=== PATIENT | female | born 1965 | race Caucasian/White ===

== ENCOUNTER 2016-04-14 11:07 | Emergency (ER) | payer OTHER, MEDICARE ==
[~2016-04-14] VITALS: Ht 152.4 cm; Wt 57.6 kg
[~2016-04-14 11:07] MED LIST: BACL10TA PO; BACL20TA PO; GABA-531 PO; NEU100; NORCO5; ROPI0.5T PO; SULF-113; ZOLP5TAB2 PO
[2016-04-14 11:09] VITALS: BP 122/85; PULSE 83; RESP 16; TEMP 98; O2SAT 99
--- NOTE | 2016-04-14 11:28 | NUR ---
Pt placed in room 3 for MD bolaños.
--- NOTE | 2016-04-14 12:14 | NUR ---
per caregiver, pt is having upper and lower extremities tightness for two weeks.pt awake alert,wheelchair bound.
--- NOTE | 2016-04-14 12:16 | NUR ---
ER at bedside examining patient.
[2016-04-14 13:23] LABS: BASOPHILS # (AUTO) 0.1 K/uL (0.0-0.2); BASOPHILS % (AUTO) 1.4 % (0.0-2.0); EOSINOPHILS # (AUTO) 0.1 K/uL (0.0-0.4); EOSINOPHILS % (AUTO) 0.6 % (0.0-4.0); HEMATOCRIT 38.4 % (36-48); HEMOGLOBIN 12.9 g/dL (12.0-16.0); LYMPHOCYTES # (AUTO) 1.5 K/uL (1.0-5.5); LYMPHOCYTES % (AUTO) 17.8 % (20.5-51.5); MEAN CORPUSCULAR HEMOGLOBIN 29 pg (27-31); MEAN CORPUSCULAR HGB CONC 34 % (32-36); MEAN CORPUSCULAR VOLUME 86 fL (79.0-98.0); MONOCYTES # (AUTO) 0.6 K/uL (0.0-1.0); MONOCYTES % (AUTO) 7.1 % (1.7-9.3); NEUTROPHILS # (AUTO) 6.1 K/uL (1.8-7.7); NEUTROPHILS % (AUTO) 73.1 % (40.0-70.0); PLATELET COUNT (AUTO) 316 K/uL (130-430); RED BLOOD CELL COUNT(AUTO) 4.49 MIL/uL (4.2-6.2); RED CELL DISTRIBUTION WIDTH 13.8 % (9.0-15.0); WHITE BLOOD COUNT (AUTO) 8.4 K/uL (4.8-10.8)
[2016-04-14 13:26] LABS: CALCIUM 9.3 mg/dL (8.4-11.0); CREATININE 0.5 mg/dL (0.55-1.30); POTASSIUM 4.4 mmol/L (3.5-5.1)
[2016-04-14 13:30] LABS: ALBUMIN 3.7 g/dL (3.4-4.8); TOTAL BILIRUBIN 0.2 mg/dL (0.0-1.0)
--- NOTE | 2016-04-14 14:06 | NUR ---
resting in wheelchair,no distress,caregiver at bedside.
--- NOTE | 2016-04-14 15:12 | NUR ---
report given to Angelika CAMARGO
--- NOTE | 2016-04-14 15:16 | NUR ---
Endorsed pt from [facility]
--- NOTE | 2016-04-14 16:31 | NUR ---
Patient given written and verbal discharge instructions and verbalizes understanding. ER MD Dr. Warren iscussed with patient the results and treatment provided. Given copies of tests performed in ER. Patient in stable condition. ID arm band. Patient educated on pain management and to follow up with PMD. Pain Scale 0/10. Opportunity for questions provided and answered.
[2016-04-14 16:35] VITALS: BP 122/85; PULSE 83; RESP 16; TEMP 98; O2SAT 99
== END 2016-04-14 16:35 | disposition home or self-care (01) ==
LOC: SED 11:07
DX: G80.9 Cerebral palsy, unspecified (principal)
CPT/HCPCS: 36415; 80053; 81025; 85025; 99284

== ENCOUNTER 2016-05-29 14:12 | Emergency (ER) | payer OTHER, MEDICARE ==
[~2016-05-29] VITALS: Ht 152.4 cm; Wt 59.0 kg
[~2016-05-29 14:12] MED LIST changes: -GABA-531 PO; -NEU100; -NORCO5; -SULF-113; -ZOLP5TAB2 PO
[2016-05-29 14:24] VITALS: BP_SYST 133
--- NOTE | 2016-05-29 14:45 | NUR ---
Patient to ER bed 8 to gown for evaluation. Side rails up.
--- NOTE | 2016-05-29 14:55 | NUR ---
ER at bedside examining patient.
--- NOTE | 2016-05-29 15:00 | NUR ---
Pt sent by PMD for evaluation of UTI. Pt has spasms per report w/ UTI. Pt is nonambulatrory.
--- NOTE | 2016-05-29 15:15 | NUR ---
Urine collected from pt via straight cath by pt.
--- NOTE | 2016-05-29 16:00 | NUR ---
pt medciated prior to d/c.Pt tolerated well.
[2016-05-29 16:10] LABS: BILIRUBIN,URINE NEGATIVE (NEGATIVE); CLARITY/URINE SL CLOUDY (CLEAR); COLOR,URINE YELLOW (YELLOW); GLUCOSE,URINE NEGATIVE (NEGATIVE); KETONES,URINE NEGATIVE (NEGATIVE); LEUKOCYTE ESTERASE ,URINE 1+ (NEGATIVE); NITRITE, URINE POSITIVE (NEGATIVE); PROTEIN URINE NEGATIVE (NEGATIVE); UROBILINOGEN,URINE 0.2 (0.2-1.0)
[2016-05-29 16:11] LABS: BLOOD, URINE TRACE (NEGATIVE)
[2016-05-29 16:21] LABS: BACTERIA,URINE MANY /HPF (None Seen)
[2016-05-29 16:22] LABS: MUCUS,URINE None Seen /LPF (None Seen); URINE AMORPHOUS PHOSPHATES 2+ /HPF (None Seen)
[2016-05-29 16:30] VITALS: BP_SYST 128
[2016-05-29] MEDS ORDERED: NITROFURANTOIN MONOHYD/M-CRYST 100 MG CAPSULE PO ONE (16:30)
--- NOTE | 2016-05-29 16:30 | NUR ---
Patient given written and verbal discharge instructions and verbalizes understanding. ER MD discussed with patient the results and treatment provided. Given copies of tests performed in ER. Patient in stable condition. ID arm band removed. Rx of Macrobid given. Patient educated on pain management and to follow up with PMD. Pain Scale 0. Opportunity for questions provided and answered.
--- NOTE | 2016-05-31 13:45 | NUR ---
Final C & S report reviewed identified organism is suseptible to Macrobid as previously prescribed. No further action indicated.
== END 2016-05-29 16:30 | disposition home or self-care (01) ==
LOC: SED 14:12
DX: N39.0 Urinary tract infection, site not specified (principal); R31.9 Hematuria, unspecified; R03.0 Elevated blood-pressure reading, without diagnosis of hypertension; G80.9 Cerebral palsy, unspecified; Q05.9 Spina bifida, unspecified
CPT/HCPCS: 81000-TC; 87086; 87186-TC; 99284

== ENCOUNTER 2016-06-06 01:20 | Emergency (ER) | payer OTHER, MEDICARE ==
[~2016-06-06] VITALS: Ht 152.4 cm; Wt 59.0 kg
[2016-06-06 01:20] VITALS: BP_SYST 116
[2016-06-06] MEDS ORDERED: SOLI10TA5 PO (01:56)
[2016-06-06] MEDS ORDERED: NITR100C PO (01:57)
[2016-06-06] MEDS ORDERED: CHOL500037 PO (01:58)
[2016-06-06] MEDS ORDERED: [UNRECOGNIZED DRUG - CODE] PO (01:59)
[2016-06-06] MEDS ORDERED: GABA-529 PO (02:03)
[2016-06-06 02:21] LABS: BASOPHILS % (AUTO) 0.7 % (0.0-2.0); EOSINOPHILS % (AUTO) 0.6 % (0.0-4.0); HEMATOCRIT 41.8 % (36-48); HEMOGLOBIN 13.8 g/dL (12.0-16.0); LYMPHOCYTES # (AUTO) 1.6 K/uL (1.0-5.5); LYMPHOCYTES % (AUTO) 27.9 % (20.5-51.5); MEAN CORPUSCULAR HEMOGLOBIN 28 pg (27-31); MEAN CORPUSCULAR HGB CONC 33 % (32-36); MEAN CORPUSCULAR VOLUME 84 fL (79.0-98.0); MONOCYTES # (AUTO) 0.6 K/uL (0.0-1.0); NEUTROPHILS # (AUTO) 3.6 K/uL (1.8-7.7); NEUTROPHILS % (AUTO) 59.8 % (40.0-70.0); PLATELET COUNT (AUTO) 220 K/uL (130-430); RED BLOOD CELL COUNT(AUTO) 4.98 MIL/uL (4.2-6.2); RED CELL DISTRIBUTION WIDTH 13.6 % (9.0-15.0); WHITE BLOOD COUNT (AUTO) 5.8 K/uL (4.8-10.8)
[2016-06-06 02:29] LABS: PROTHROMBIN TIME 11.3 SECS (9.5-12.5)
[2016-06-06 02:33] LABS: ANION GAP 5 (5-15); CALCIUM 8.9 mg/dL (8.4-11.0); CHLORIDE 97 mmol/L (98-107); CREATININE 0.61 mg/dL (0.55-1.30); GFR AFRICAN AMERICAN 134 mL/min (>90); GLUCOSE 116 mg/dL (70-99); POTASSIUM 3.7 mmol/L (3.5-5.1); SODIUM SERUM 129 mmol/L (136-145); UREA NITROGEN, BLOOD 11 mg/dL (8-21)
[2016-06-06 02:57] LABS: ALANINE AMINOTRANSFERASE 23 U/L (12-78); ALBUMIN 3.6 g/dL (3.4-4.8); ASPARTATE AMINOTRANSFERASE 17 U/L (10-37); FREE T4 (FREE THYROXINE) 1.3 ng/dL (0.6-1.6); TOTAL BILIRUBIN 0.4 mg/dL (0.0-1.0); TOTAL PROTEIN, SERUM 7.8 g/dL (6.4-8.3)
[2016-06-06 02:58] LABS: ALCOHOL, BLOOD < 3 mg/dL (<10)
[2016-06-06] MEDS ORDERED: NACL 0.9% 1,000 ML IV ONE (03:15)
[2016-06-06] MEDS ORDERED: LORazepam 2 MG/ML VIAL (FOR ER USE) IVP ONE (03:45)
[2016-06-06 04:03] LABS: BILIRUBIN,URINE NEGATIVE (NEGATIVE); CLARITY/URINE CLEAR (CLEAR); COLOR,URINE YELLOW (YELLOW); GLUCOSE,URINE NEGATIVE (NEGATIVE); KETONES,URINE TRACE (NEGATIVE); LEUKOCYTE ESTERASE ,URINE TRACE (NEGATIVE); NITRITE, URINE NEGATIVE (NEGATIVE); PROTEIN URINE NEGATIVE (NEGATIVE); UROBILINOGEN,URINE 0.2 (0.2-1.0)
[2016-06-06 04:05] LABS: BLOOD, URINE TRACE (NEGATIVE)
[2016-06-06 04:13] LABS: BARBITURATE, URINE NEGATIVE (NEG <=200); BENZODIAZEPINE, URINE NEGATIVE (NEG <=150); CANNABINOID, URINE NEGATIVE (NEG <=50); COCAINE, URINE NEGATIVE (NEG <=150); METHAMPHETAMINES SCREEN,URINE NEGATIVE (NEG <=500); OPIATE, URINE NEGATIVE (NEG <=100); PHENCYCLIDINE SCREEN,URINE NEGATIVE (NEG <=25); UR TRICYCLIC ANTIDEPRESSANTS NEGATIVE (NEG <=300); URINE AMPHETAMINE NEGATIVE (NEG <=500); URINE METHADONE NEGATIVE (NEG <=200); URINE OXYCODONE SCREEN NEGATIVE (NEG <=100); URINE PROPOXYPHENE SCREEN NEGATIVE (NEG <=300)
[2016-06-06 04:18] LABS: BACTERIA,URINE RARE /HPF (None Seen); WBC,URINE 0-3 /HPF (0-3)
[2016-06-06 04:40] VITALS: BP_SYST 112
== END 2016-06-06 04:40 | disposition home or self-care (01) ==
LOC: SED 01:20
DX: R52 Pain, unspecified (principal); G47.00 Insomnia, unspecified; G80.9 Cerebral palsy, unspecified; Q05.9 Spina bifida, unspecified; Z86.79 Personal history of other diseases of the circulatory system
CPT/HCPCS: 36415; 71010; 74000; 80053; 80307; 81000; 82140; 83605; 83880; 84439; 84484; 85025; 85610; 87040; 93005; 96361; 96374; 99285; G0482; J2060; J7030

== ENCOUNTER 2016-08-09 14:29 | Outpatient (CLI) | payer OTHER, MEDICARE ==
[~2016-08-09 14:29] MED LIST changes: -BACL10TA PO; +CHOL500037 PO; +GABA-529 PO; +NITR100C PO; +SOLI10TA5 PO; +[UNRECOGNIZED DRUG - CODE] PO
== END 2016-08-09 18:16 | disposition home or self-care (01) ==
LOC: SRD 14:29
PROVIDERS: ATTEND Anesthesiology Pain Medicine
DX: M47.896 Other spondylosis, lumbar region (principal); M41.86 Other forms of scoliosis, lumbar region; M41.84 Other forms of scoliosis, thoracic region; Q05.6 Thoracic spina bifida without hydrocephalus; Q05.7 Lumbar spina bifida without hydrocephalus
CPT/HCPCS: 72072-TC; 72100-TC

== ENCOUNTER 2022-10-04 13:58 | Inpatient (IN) | payer OTHER, BC ==
[~2022-10-04] VITALS: Ht 162.6 cm; Wt 59.9 kg
[~2022-10-04 13:58] MED LIST changes: +SOLI10TA2 PO; -SOLI10TA5 PO
[2022-10-04 14:04] VITALS: BP_SYST 124; PULSE 88; RESP 18; TEMP 98.3; O2SAT 98
[2022-10-04 14:40] LABS: BASOPHILS % (AUTO) 0.6 % (0.0-2.0); EOSINOPHILS # (AUTO) 0.4 K/uL (0.0-0.4); EOSINOPHILS % (AUTO) 5.2 % (0.0-4.0); HEMOGLOBIN 12.7 g/dL (12.0-16.0); LYMPHOCYTES # (AUTO) 1.3 K/uL (1.0-5.5); LYMPHOCYTES % (AUTO) 18.3 % (20.5-51.5); MEAN CORPUSCULAR HEMOGLOBIN 27 pg (27-31); MEAN CORPUSCULAR HGB CONC 32 % (32-36); MEAN CORPUSCULAR VOLUME 84 fL (79.0-98.0); MONOCYTES # (AUTO) 0.6 K/uL (0.0-1.0); MONOCYTES % (AUTO) 8.2 % (1.7-9.3); NEUTROPHILS # (AUTO) 4.6 K/uL (1.8-7.7); NEUTROPHILS % (AUTO) 67.7 % (40.0-70.0); PLATELET COUNT (AUTO) 343 K/uL (130-430); RED BLOOD CELL COUNT(AUTO) 4.77 MIL/uL (4.2-6.2); RED CELL DISTRIBUTION WIDTH 16.9 % (9.0-15.0); WHITE BLOOD COUNT (AUTO) 6.9 K/uL (4.8-10.8)
[2022-10-04 15:00] LABS: PROTHROMBIN TIME 10.7 SECS (9.5-12.5)
[2022-10-04 15:08] LABS: POTASSIUM 3.9 mmol/L (3.5-5.1)
[2022-10-04 15:09] LABS: ALBUMIN 2.9 g/dL (3.4-4.8); CALCIUM 8.5 mg/dL (8.4-11.0); CREATININE 0.39 mg/dL (0.55-1.30); TOTAL BILIRUBIN 0.2 mg/dL (0.0-1.0); TOTAL PROTEIN, SERUM 6.8 g/dL (6.4-8.3)
[2022-10-04 17:47] LABS: BILIRUBIN,URINE NEGATIVE (NEGATIVE); BLOOD, URINE 3+ (NEGATIVE); CLARITY/URINE SL CLOUDY (CLEAR); COLOR,URINE YELLOW (YELLOW); GLUCOSE,URINE NEGATIVE (NEGATIVE); KETONES,URINE NEGATIVE (NEGATIVE); LEUKOCYTE ESTERASE ,URINE TRACE (NEGATIVE); NITRITE, URINE POSITIVE (NEGATIVE); PROTEIN URINE NEGATIVE (NEGATIVE); UROBILINOGEN,URINE 0.2 (0.2-1.0)
[2022-10-04 18:00] LABS: BACTERIA,URINE MODERATE /HPF (None Seen); RBC,URINE 20-50 /HPF (0-3)
[2022-10-04] MEDS ORDERED: VANCOMYCIN HCL 1,250 MG in NS 250 ML IV ONE (18:00)
[2022-10-04 18:01] LABS: MUCUS,URINE None Seen /LPF (None Seen); URINE AMORPHOUS PHOSPHATES 2+ /HPF (None Seen)
[2022-10-04] MEDS ORDERED: CYCL10TA24 PO (19:13)
[2022-10-04] MEDS ORDERED: NITROFURANTOIN PO (19:13)
[2022-10-04] MEDS ORDERED: TIZA6CAP PO (19:13)
[2022-10-04] MEDS ORDERED: POLY17PO4 PO (19:13)
[2022-10-04] MEDS ORDERED: APIX5TAB PO (19:13)
[2022-10-04] MEDS ORDERED: BACL20TA PO (19:13)
[2022-10-04 20:20] VITALS: BP_SYST 133; PULSE 96; RESP 20; TEMP 97.2
[2022-10-04] MEDS: CEFEPIME 2 GM in D5W 100 ML IV SCH (21:57)
[2022-10-05] VITALS (7 sets, daily range): BP systolic 104–129; PULSE 89–98; RESP 15–18; TEMP 96.9–97.9; O2SAT 92–97
[2022-10-05] MEDS: CEFEPIME 2 GM in D5W 100 ML IV SCH ×2 (09:28→23:29)
[2022-10-05 10:51] LABS: BASOPHILS % (AUTO) 0.4 % (0.0-2.0); EOSINOPHILS # (AUTO) 0.2 K/uL (0.0-0.4); EOSINOPHILS % (AUTO) 2.3 % (0.0-4.0); HEMATOCRIT 35.5 % (36-48); HEMOGLOBIN 11.6 g/dL (12.0-16.0); LYMPHOCYTES # (AUTO) 1.4 K/uL (1.0-5.5); MEAN CORPUSCULAR HEMOGLOBIN 27 pg (27-31); MEAN CORPUSCULAR HGB CONC 33 % (32-36); MONOCYTES # (AUTO) 0.6 K/uL (0.0-1.0); MONOCYTES % (AUTO) 8.4 % (1.7-9.3); NEUTROPHILS # (AUTO) 5.3 K/uL (1.8-7.7); NEUTROPHILS % (AUTO) 70.9 % (40.0-70.0); PLATELET COUNT (AUTO) 339 K/uL (130-430); RED BLOOD CELL COUNT(AUTO) 4.34 MIL/uL (4.2-6.2); RED CELL DISTRIBUTION WIDTH 16.6 % (9.0-15.0); WHITE BLOOD COUNT (AUTO) 7.5 K/uL (4.8-10.8)
[2022-10-05 10:53] LABS: MEAN CORPUSCULAR VOLUME 82 fL (79.0-98.0)
[2022-10-05 11:27] LABS: CREATININE 0.55 mg/dL (0.55-1.30); TOTAL BILIRUBIN 0.3 mg/dL (0.0-1.0); TOTAL PROTEIN, SERUM 6.3 g/dL (6.4-8.3)
[2022-10-05 11:53] LABS: ALBUMIN 2.7 g/dL (3.4-4.8)
[2022-10-05] MEDS: VANCOMYCIN HCL 750 MG in NS 250 ML IV SCH (13:39)
[2022-10-05] MEDS ORDERED: ONDANSETRON HCL 4 MG/2 ML VIAL IVP PRN (19:15)
[2022-10-05] MEDS ORDERED: CYCLOBENZAPRINE HCL 10 MG TABLET (FLEXERIL) PO PRN (19:15)
[2022-10-05] MEDS ORDERED: NALOXONE HCL 0.4 MG/ML AMP (NARCAN) IVP PRN ×2 (19:15)
[2022-10-05] MEDS ORDERED: LORazepam 2 MG/ML VIAL IVP PRN (19:15)
[2022-10-05] MEDS ORDERED: HYDROcodone/ACETAMIN 5-325 MG TAB (NORCO/ VICODIN) PO PRN (19:15)
[2022-10-05] MEDS ORDERED: ACETAMINOPHEN 325 MG TABLET PO PRN (19:15)
[2022-10-05] MEDS ORDERED: HYDROcodone/ACETAMIN 10-325 MG TAB PO PRN (19:15)
[2022-10-05] MEDS ORDERED: DIPHENHYDRAMINE HCL 25 MG CAPSULE PO PRN (20:15)
[2022-10-05] MEDS ORDERED: BACLOFEN 10 MG TABLET PO SCH (21:00)
[2022-10-05] MEDS: tiZANidine HCL 4 MG TABLET PO SCH (23:03)
[2022-10-05] MEDS: oxyBUTYnin chloride 5 MG TABLET PO SCH (23:03)
[2022-10-05] MEDS: GABAPENTIN 100 MG CAPSULE PO SCH (23:04)
[2022-10-05] MEDS: NORMAL SALINE 5 ML DISP.SYRIN IVF SCH (23:05)
[2022-10-05] MEDS: APIXABAN 2.5 MG TABLET PO SCH (23:05)
[2022-10-06 00:37] VITALS: BP_SYST 124; PULSE 77; RESP 16; TEMP 96.8; O2SAT 92
[2022-10-06] MEDS: VANCOMYCIN HCL 750 MG in NS 250 ML IV SCH ×2 (01:54→13:54)
[2022-10-06] MEDS: NORMAL SALINE 5 ML DISP.SYRIN IVF SCH ×3 (05:43→22:22)
[2022-10-06 07:56] LABS: ALBUMIN 2.6 g/dL (3.4-4.8); CALCIUM 7.9 mg/dL (8.4-11.0); CREATININE 0.39 mg/dL (0.55-1.30); POTASSIUM 3.6 mmol/L (3.5-5.1); TOTAL BILIRUBIN 0.2 mg/dL (0.0-1.0)
[2022-10-06 08:07] LABS: BASOPHILS % (AUTO) 0.5 % (0.0-2.0); EOSINOPHILS # (AUTO) 0.3 K/uL (0.0-0.4); EOSINOPHILS % (AUTO) 3.3 % (0.0-4.0); HEMOGLOBIN 11.5 g/dL (12.0-16.0); LYMPHOCYTES # (AUTO) 2.3 K/uL (1.0-5.5); LYMPHOCYTES % (AUTO) 29.4 % (20.5-51.5); MEAN CORPUSCULAR HEMOGLOBIN 27 pg (27-31); MEAN CORPUSCULAR HGB CONC 33 % (32-36); MEAN CORPUSCULAR VOLUME 83 fL (79.0-98.0); MONOCYTES # (AUTO) 0.5 K/uL (0.0-1.0); NEUTROPHILS # (AUTO) 4.6 K/uL (1.8-7.7); NEUTROPHILS % (AUTO) 59.8 % (40.0-70.0); PLATELET COUNT (AUTO) 324 K/uL (130-430); RED BLOOD CELL COUNT(AUTO) 4.23 MIL/uL (4.2-6.2); RED CELL DISTRIBUTION WIDTH 16.2 % (9.0-15.0); WHITE BLOOD COUNT (AUTO) 7.8 K/uL (4.8-10.8)
[2022-10-06] MEDS ORDERED: NON-FORMULARY MEDICATION (Solifenacin Succinate (Vesicare) 10 MG) PO SCH (09:00)
[2022-10-06] MEDS: CEFEPIME 2 GM in D5W 100 ML IV SCH ×2 (10:03→22:21)
[2022-10-06] MEDS: POLYETHYLENE GLYCOL 3350, 17 GM/ POWD.PACK PO SCH (10:11)
[2022-10-06] MEDS: GABAPENTIN 100 MG CAPSULE PO SCH ×4 (10:11→22:20)
[2022-10-06] MEDS: oxyBUTYnin chloride 5 MG TABLET PO SCH ×2 (10:11→22:21)
[2022-10-06] MEDS: APIXABAN 2.5 MG TABLET PO SCH ×2 (10:21→22:21)
[2022-10-06] MEDS: BALSAM PERU/CASTOR OIL 56.7 GM OINT...G. TP SCH (10:26)
[2022-10-06 11:30] VITALS: BP_SYST 124; PULSE 88; RESP 19; TEMP 98.1; O2SAT 94
[2022-10-06 13:25] VITALS: O2SAT 96
[2022-10-06 16:30] VITALS: BP_SYST 118; PULSE 88; RESP 19; TEMP 98.4; O2SAT 96
[2022-10-06 22:00] VITALS: O2SAT 97
[2022-10-06] MEDS: BACLOFEN 10 MG TABLET PO SCH (22:21)
[2022-10-06] MEDS: tiZANidine HCL 4 MG TABLET PO SCH (22:21)
[2022-10-07] VITALS (7 sets, daily range): BP systolic 91–133; PULSE 74–82; RESP 16–18; TEMP 96.6–98; O2SAT 95–98
[2022-10-07] MEDS: VANCOMYCIN HCL 750 MG in NS 250 ML IV SCH ×2 (01:53→14:54)
[2022-10-07] MEDS: NORMAL SALINE 5 ML DISP.SYRIN IVF SCH ×3 (05:53→21:14)
[2022-10-07 06:19] LABS: BASOPHILS # (AUTO) 0.1 K/uL (0.0-0.2); BASOPHILS % (AUTO) 0.6 % (0.0-2.0); EOSINOPHILS # (AUTO) 0.3 K/uL (0.0-0.4); EOSINOPHILS % (AUTO) 3.8 % (0.0-4.0); HEMATOCRIT 34.8 % (36-48); HEMOGLOBIN 11.2 g/dL (12.0-16.0); LYMPHOCYTES # (AUTO) 2.6 K/uL (1.0-5.5); LYMPHOCYTES % (AUTO) 32.7 % (20.5-51.5); MEAN CORPUSCULAR HEMOGLOBIN 27 pg (27-31); MEAN CORPUSCULAR HGB CONC 32 % (32-36); MEAN CORPUSCULAR VOLUME 83 fL (79.0-98.0); MONOCYTES # (AUTO) 0.6 K/uL (0.0-1.0); MONOCYTES % (AUTO) 7.6 % (1.7-9.3); NEUTROPHILS # (AUTO) 4.4 K/uL (1.8-7.7); NEUTROPHILS % (AUTO) 55.3 % (40.0-70.0); PLATELET COUNT (AUTO) 341 K/uL (130-430); RED CELL DISTRIBUTION WIDTH 16.8 % (9.0-15.0)
[2022-10-07 06:24] LABS: CALCIUM 7.7 mg/dL (8.4-11.0); CREATININE 0.4 mg/dL (0.55-1.30); POTASSIUM 3.8 mmol/L (3.5-5.1)
[2022-10-07 06:35] LABS: ERYTHROCYTE SEDIMENTATION RATE 36 MM/HR (0-20)
[2022-10-07] MEDS: POLYETHYLENE GLYCOL 3350, 17 GM/ POWD.PACK PO SCH (09:04)
[2022-10-07] MEDS: GABAPENTIN 100 MG CAPSULE PO SCH ×4 (09:04→21:04)
[2022-10-07] MEDS: oxyBUTYnin chloride 5 MG TABLET PO SCH ×2 (09:04→21:04)
[2022-10-07] MEDS: APIXABAN 2.5 MG TABLET PO SCH ×2 (09:18→21:05)
[2022-10-07] MEDS: BALSAM PERU/CASTOR OIL 56.7 GM OINT...G. TP SCH (09:19)
[2022-10-07] MEDS: CEFEPIME 2 GM in D5W 100 ML IV SCH ×2 (10:48→23:39)
[2022-10-07] MEDS: tiZANidine HCL 4 MG TABLET PO SCH (21:04)
[2022-10-07] MEDS: BACLOFEN 10 MG TABLET PO SCH (23:32)
[2022-10-07] MEDS ORDERED: CEFEPIME 2 GM/VIAL (MAXIPIME) ONE (23:37)
[2022-10-08 01:00] VITALS: BP_SYST 133; PULSE 82; RESP 16; TEMP 97.4; O2SAT 98
[2022-10-08] MEDS: VANCOMYCIN HCL 750 MG in NS 250 ML IV SCH (01:19)
[2022-10-08 02:54] VITALS: BP_SYST 96; PULSE 86; RESP 18; TEMP 97; O2SAT 96
[2022-10-08 08:00] VITALS: BP_SYST 103; PULSE 85; RESP 18; TEMP 97.1; O2SAT 95
[2022-10-08] MEDS: APIXABAN 2.5 MG TABLET PO SCH ×2 (09:00→21:13)
[2022-10-08] MEDS: BALSAM PERU/CASTOR OIL 56.7 GM OINT...G. TP SCH (09:00)
[2022-10-08] MEDS: GABAPENTIN 100 MG CAPSULE PO SCH ×3 (11:06→21:14)
[2022-10-08] MEDS: oxyBUTYnin chloride 5 MG TABLET PO SCH ×2 (11:07→21:13)
[2022-10-08] MEDS: POLYETHYLENE GLYCOL 3350, 17 GM/ POWD.PACK PO SCH (11:07)
[2022-10-08] MEDS: CEFEPIME 2 GM in D5W 100 ML IV SCH ×2 (11:11→21:15)
[2022-10-08 15:46] VITALS: BP_SYST 132; PULSE 88; RESP 18; TEMP 97.1; O2SAT 98
[2022-10-08 15:58] VITALS: O2SAT 98
[2022-10-10] MEDS ORDERED: ERGOCALCIFEROL 8000 UNITS/ML ORAL SOLUTION, 60 ML BOTTLE PO SCH (09:00)
== END 2022-10-08 22:43 | DRG 571 ==
LOC: SED 13:58 → SMU 17:04
PROVIDERS: ADMIT Preventive Medicine Preventive Medicine/Occupational Environmental Medicine; ATTEND Preventive Medicine Preventive Medicine/Occupational Environmental Medicine
PROC: 0JBL0ZZ Excision of Right Upper Leg Subcutaneous Tissue and Fascia, Open Approach (ICD-10-PCS; principal; 2022-10-05)
DX: L89.890 Pressure ulcer of other site, unstageable (principal); E44.0 Moderate protein-calorie malnutrition; L02.31 Cutaneous abscess of buttock; E87.1 Hypo-osmolality and hyponatremia; N39.0 Urinary tract infection, site not specified; Z16.24 Resistance to multiple antibiotics; I96 Gangrene, not elsewhere classified; G80.9 Cerebral palsy, unspecified; I25.10 Atherosclerotic heart disease of native coronary artery without angina pectoris; E88.09 Other disorders of plasma-protein metabolism, not elsewhere classified; N31.9 Neuromuscular dysfunction of bladder, unspecified; B96.20 Unspecified Escherichia coli [E. coli] as the cause of diseases classified elsewhere; L98.429 Non-pressure chronic ulcer of back with unspecified severity; D64.9 Anemia, unspecified; G62.9 Polyneuropathy, unspecified; R73.9 Hyperglycemia, unspecified; E83.52 Hypercalcemia; Z68.22 Body mass index [BMI] 22.0-22.9, adult; Q05.9 Spina bifida, unspecified; Z99.3 Dependence on wheelchair; Z87.440 Personal history of urinary (tract) infections; Z74.01 Bed confinement status
CPT/HCPCS: 36415; 80048; 80053; 80202; 81000; 83605; 85025; 85610-TC; 85651-TC; 85730-TC; 87040; 87070-TC; 87081; 87086; 96365; 97110-GP; 97163-GP; 99285; C1751; J0692; J3370; J7050; J7060

== ENCOUNTER 2023-01-18 00:28 | Emergency (ER) | payer OTHER, BC ==
[~2023-01-18] VITALS: Ht 162.6 cm; Wt 77.1 kg
[~2023-01-18 00:28] MED LIST changes: +APIX5TAB PO; +CYCL10TA24 PO; +NITROFURANTOIN PO; +POLY17PO4 PO; +TIZA6CAP PO
[2023-01-18 00:53] VITALS: BP_SYST 123; PULSE 102; RESP 18; TEMP 98.4; O2SAT 98
[2023-01-18 01:45] LABS: BASOPHILS % (AUTO) 0.4 % (0.0-2.0); EOSINOPHILS # (AUTO) 0.3 K/uL (0.0-0.4); EOSINOPHILS % (AUTO) 3.4 % (0.0-4.0); HEMATOCRIT 35.2 % (36-48); HEMOGLOBIN 11.4 g/dL (12.0-16.0); LYMPHOCYTES # (AUTO) 2.2 K/uL (1.0-5.5); LYMPHOCYTES % (AUTO) 24.3 % (20.5-51.5); MEAN CORPUSCULAR HEMOGLOBIN 27 pg (27-31); MEAN CORPUSCULAR HGB CONC 32 % (32-36); MEAN CORPUSCULAR VOLUME 83 fL (79.0-98.0); MONOCYTES # (AUTO) 0.6 K/uL (0.0-1.0); MONOCYTES % (AUTO) 6.2 % (1.7-9.3); NEUTROPHILS % (AUTO) 65.7 % (40.0-70.0); PLATELET COUNT (AUTO) 424 K/uL (130-430); RED BLOOD CELL COUNT(AUTO) 4.25 MIL/uL (4.2-6.2); RED CELL DISTRIBUTION WIDTH 16.5 % (9.0-15.0); WHITE BLOOD COUNT (AUTO) 9.2 K/uL (4.8-10.8)
[2023-01-18] MEDS ORDERED: MOM PO (01:46)
[2023-01-18 01:53] LABS: BILIRUBIN,URINE NEGATIVE (NEGATIVE); BLOOD, URINE 3+ (NEGATIVE); COLOR,URINE YELLOW (YELLOW); GLUCOSE,URINE NEGATIVE (NEGATIVE); KETONES,URINE NEGATIVE (NEGATIVE); LEUKOCYTE ESTERASE ,URINE 3+ (NEGATIVE); NITRITE, URINE POSITIVE (NEGATIVE); PROTEIN URINE 1+ (NEGATIVE); UROBILINOGEN,URINE 0.2 (0.2-1.0)
[2023-01-18 01:58] LABS: ALBUMIN 2.8 g/dL (3.4-4.8); CALCIUM 8.9 mg/dL (8.4-11.0); CREATININE 0.56 mg/dL (0.55-1.30); POTASSIUM 3.8 mmol/L (3.5-5.1); TOTAL BILIRUBIN 0.2 mg/dL (0.0-1.0); TOTAL PROTEIN, SERUM 7.1 g/dL (6.4-8.3)
[2023-01-18 02:06] LABS: CLARITY/URINE CLOUDY (CLEAR)
[2023-01-18 02:08] LABS: BACTERIA,URINE MANY /HPF (None Seen); RBC,URINE 80-100 /HPF (0-3); WBC,URINE >100 /HPF (0-3)
[2023-01-18 04:37] VITALS: BP_SYST 123; PULSE 102; RESP 18; TEMP 98.4; O2SAT 98
== END 2023-01-18 04:37 ==
LOC: SED 00:28
DX: K59.00 Constipation, unspecified (principal); R10.84 Generalized abdominal pain; Z79.899 Other long term (current) drug therapy
CPT/HCPCS: 36415; 74018; 80053; 81000; 81001; 81015; 83605; 85025; 87040; 87086; 99284

== ENCOUNTER 2023-02-19 08:36 | Inpatient (IN) | payer OTHER, BC ==
[~2023-02-19] VITALS: Ht 162.6 cm; Wt 60.3 kg
[~2023-02-19 08:36] MED LIST changes: +MOM PO
[2023-02-19 08:40] VITALS: BP_SYST 112; PULSE 111; RESP 18; O2SAT 94
[2023-02-19 09:17] LABS: CALCIUM 8.8 mg/dL (8.4-11.0); CREATININE 0.49 mg/dL (0.55-1.30); POTASSIUM 3.7 mmol/L (3.5-5.1)
[2023-02-19 09:23] LABS: BASOPHILS % (AUTO) 0.2 % (0.0-2.0); HEMATOCRIT 37.6 % (36-48); HEMOGLOBIN 12.6 g/dL (12.0-16.0); LYMPHOCYTES # (AUTO) 0.9 K/uL (1.0-5.5); LYMPHOCYTES % (AUTO) 8.6 % (20.5-51.5); MEAN CORPUSCULAR HEMOGLOBIN 27 pg (27-31); MEAN CORPUSCULAR HGB CONC 33 % (32-36); MEAN CORPUSCULAR VOLUME 81 fL (79.0-98.0); MONOCYTES # (AUTO) 0.3 K/uL (0.0-1.0); MONOCYTES % (AUTO) 3.3 % (1.7-9.3); NEUTROPHILS # (AUTO) 8.9 K/uL (1.8-7.7); NEUTROPHILS % (AUTO) 87.9 % (40.0-70.0); PLATELET COUNT (AUTO) 378 K/uL (130-430); RED BLOOD CELL COUNT(AUTO) 4.66 MIL/uL (4.2-6.2); RED CELL DISTRIBUTION WIDTH 16.2 % (9.0-15.0); WHITE BLOOD COUNT (AUTO) 10.1 K/uL (4.8-10.8)
[2023-02-19] MEDS ORDERED: NS 500 ML IV ONE (10:00)
[2023-02-19] MEDS ORDERED: NACL 0.9% 1,000 ML IV ONE (11:45)
[2023-02-19] MEDS ORDERED: AZITHROMYCIN 500 MG in NS 250 ML IV ONE (13:45)
[2023-02-19] MEDS ORDERED: cefTRIAXone 1 GM IVPB PREMIX 50 ML IV ONE (13:45)
[2023-02-19 14:07] LABS: BILIRUBIN,URINE NEGATIVE (NEGATIVE); BLOOD, URINE 3+ (NEGATIVE); CLARITY/URINE SL CLOUDY (CLEAR); COLOR,URINE YELLOW (YELLOW); GLUCOSE,URINE NEGATIVE (NEGATIVE); KETONES,URINE NEGATIVE (NEGATIVE); NITRITE, URINE POSITIVE (NEGATIVE); PH,URINE 7.5 (5.0-8.0); PROTEIN URINE 1+ (NEGATIVE); UROBILINOGEN,URINE 0.2 (0.2-1.0)
[2023-02-19 14:12] LABS: LEUKOCYTE ESTERASE ,URINE 2+ (NEGATIVE)
[2023-02-19 14:13] LABS: BACTERIA,URINE FEW /HPF (None Seen); MUCUS,URINE None Seen /LPF (None Seen)
[2023-02-19] MEDS ORDERED: AZITHROMYCIN 500 MG in NS 250 ML IV SCH (14:15)
[2023-02-19 14:16] LABS: URINE AMORPHOUS PHOSPHATES 2+ /HPF (None Seen)
[2023-02-19 14:25] VITALS: PULSE 100; O2SAT 95
[2023-02-19] MEDS ORDERED: AZITHROMYCIN 500 MG/VIAL (ZITHROMAX) IV ONE (14:36)
[2023-02-19] MEDS: D5/0.45 NS 1,000 ML IV SCH (16:00)
[2023-02-19] MEDS ORDERED: IPRATROPIUM/ALBUTEROL SULFATE 3 ML AMPUL.NEB (DUONEB) INH SCH (17:00)
[2023-02-19] MEDS: PIPERACILLIN/TAZO 3.375/DEX-IS 50 ML IV SCH (18:16)
[2023-02-19] MEDS: IPRATROPIUM/ALBUTEROL SULFATE 3 ML AMPUL.NEB (DUONEB) INH SCH (19:00)
[2023-02-19] MEDS ORDERED: BACLOFEN 10 MG TABLET PO SCH (21:00)
[2023-02-19] MEDS ORDERED: roPINIRole HCL 0.25 MG ( REQUIP )TABLET PO SCH (21:00)
[2023-02-19] MEDS ORDERED: IPRATROPIUM/ALBUTEROL SULFATE 3 ML AMPUL.NEB (DUONEB) INH PRN (22:00)
[2023-02-19 23:27] VITALS: O2SAT 96
[2023-02-20] MEDS ORDERED: PIPERACILLIN/TAZOBACTAM 3.375 GM/VIAL (ZOSYN) IV ONE (00:01)
[2023-02-20] MEDS: PIPERACILLIN/TAZO 3.375/DEX-IS 50 ML IV SCH ×4 (00:19→18:00)
[2023-02-20] MEDS: D5/0.45 NS 1,000 ML IV SCH ×3 (00:34→22:38)
[2023-02-20 06:57] LABS: ALBUMIN 2.6 g/dL (3.4-4.8); CALCIUM 8.1 mg/dL (8.4-11.0); CREATININE 0.54 mg/dL (0.55-1.30); POTASSIUM 3.6 mmol/L (3.5-5.1); TOTAL BILIRUBIN 0.2 mg/dL (0.0-1.0); TOTAL PROTEIN, SERUM 6.6 g/dL (6.4-8.3)
[2023-02-20 07:00] LABS: BASOPHILS % (AUTO) 0.2 % (0.0-2.0); EOSINOPHILS % (AUTO) 0.1 % (0.0-4.0); HEMATOCRIT 35.7 % (36-48); HEMOGLOBIN 11.6 g/dL (12.0-16.0); LYMPHOCYTES # (AUTO) 1.7 K/uL (1.0-5.5); LYMPHOCYTES % (AUTO) 21.5 % (20.5-51.5); MEAN CORPUSCULAR HEMOGLOBIN 26 pg (27-31); MEAN CORPUSCULAR HGB CONC 32 % (32-36); MEAN CORPUSCULAR VOLUME 82 fL (79.0-98.0); MONOCYTES # (AUTO) 0.6 K/uL (0.0-1.0); MONOCYTES % (AUTO) 7.3 % (1.7-9.3); NEUTROPHILS # (AUTO) 5.6 K/uL (1.8-7.7); NEUTROPHILS % (AUTO) 70.9 % (40.0-70.0); PLATELET COUNT (AUTO) 323 K/uL (130-430); RED BLOOD CELL COUNT(AUTO) 4.37 MIL/uL (4.2-6.2); RED CELL DISTRIBUTION WIDTH 16.7 % (9.0-15.0); WHITE BLOOD COUNT (AUTO) 7.9 K/uL (4.8-10.8)
[2023-02-20 07:40] VITALS: O2SAT 94
[2023-02-20] MEDS: IPRATROPIUM/ALBUTEROL SULFATE 3 ML AMPUL.NEB (DUONEB) INH SCH ×4 (08:39→22:01)
[2023-02-20] MEDS ORDERED: NON-FORMULARY MEDICATION (Solifenacin Succinate (Vesicare) 10 MG) PO SCH (09:00)
[2023-02-20] MEDS: MILK OF MAGNESIA 30 ML UDC PO SCH ×3 (09:00→21:41)
[2023-02-20] MEDS: GABAPENTIN 100 MG CAPSULE PO SCH ×5 (09:00→21:41)
[2023-02-20] MEDS: POLYETHYLENE GLYCOL 3350, 17 GM/ POWD.PACK PO SCH (09:00)
[2023-02-20] MEDS: AZITHROMYCIN 500 MG in NS 250 ML IV SCH (10:54)
[2023-02-20 12:55] VITALS: O2SAT 96
[2023-02-20] MEDS: APIXABAN 2.5 MG TABLET PO SCH ×2 (17:42→21:40)
[2023-02-20 22:01] VITALS: O2SAT 97
[2023-02-20 22:16] VITALS: BP_SYST 100; PULSE 75; RESP 17; TEMP 98.4
[2023-02-21] VITALS (10 sets, daily range): BP systolic 91–110; PULSE 96–102; RESP 16; TEMP 97.2–99.2; O2SAT 95–99
[2023-02-21] MEDS: PIPERACILLIN/TAZO 3.375/DEX-IS 50 ML IV SCH ×5 (00:23→23:55)
[2023-02-21 04:45] LABS: CALCIUM 8.1 mg/dL (8.4-11.0); CREATININE 0.48 mg/dL (0.55-1.30); POTASSIUM 3.4 mmol/L (3.5-5.1)
[2023-02-21 05:19] LABS: BASOPHILS % (AUTO) 0.3 % (0.0-2.0); EOSINOPHILS # (AUTO) 0.1 K/uL (0.0-0.4); EOSINOPHILS % (AUTO) 1.1 % (0.0-4.0); HEMATOCRIT 31.7 % (36-48); HEMOGLOBIN 10.2 g/dL (12.0-16.0); LYMPHOCYTES # (AUTO) 2.4 K/uL (1.0-5.5); LYMPHOCYTES % (AUTO) 34.1 % (20.5-51.5); MEAN CORPUSCULAR HEMOGLOBIN 26 pg (27-31); MEAN CORPUSCULAR HGB CONC 32 % (32-36); MEAN CORPUSCULAR VOLUME 81 fL (79.0-98.0); MONOCYTES # (AUTO) 0.7 K/uL (0.0-1.0); MONOCYTES % (AUTO) 9.8 % (1.7-9.3); NEUTROPHILS # (AUTO) 3.9 K/uL (1.8-7.7); NEUTROPHILS % (AUTO) 54.7 % (40.0-70.0); PLATELET COUNT (AUTO) 285 K/uL (130-430); RED BLOOD CELL COUNT(AUTO) 3.93 MIL/uL (4.2-6.2); RED CELL DISTRIBUTION WIDTH 16.6 % (9.0-15.0); WHITE BLOOD COUNT (AUTO) 7.2 K/uL (4.8-10.8)
[2023-02-21] MEDS: IPRATROPIUM/ALBUTEROL SULFATE 3 ML AMPUL.NEB (DUONEB) INH SCH ×4 (07:35→19:50)
[2023-02-21] MEDS ORDERED: BACLOFEN 10 MG TABLET PO SCH (09:00)
[2023-02-21] MEDS: AZITHROMYCIN 500 MG in NS 250 ML IV SCH (09:45)
[2023-02-21] MEDS: D5/0.45 NS 1,000 ML IV SCH (09:49)
[2023-02-21] MEDS: MILK OF MAGNESIA 30 ML UDC PO SCH ×2 (09:53→21:34)
[2023-02-21] MEDS: oxyBUTYnin chloride 5 MG TABLET PO SCH ×3 (09:53→21:32)
[2023-02-21] MEDS: GABAPENTIN 100 MG CAPSULE PO SCH ×4 (09:53→21:32)
[2023-02-21] MEDS: POLYETHYLENE GLYCOL 3350, 17 GM/ POWD.PACK PO SCH (09:53)
[2023-02-21] MEDS: APIXABAN 2.5 MG TABLET PO SCH ×2 (09:54→21:31)
[2023-02-21] MEDS ORDERED: POTASSIUM CHLORIDE 20 MEQ TABLET.ER PO ONE (11:30)
[2023-02-21] MEDS: BACLOFEN 10 MG TABLET PO SCH (21:30)
[2023-02-22] VITALS (9 sets, daily range): BP systolic 94–127; PULSE 69–100; RESP 18; TEMP 96.8–99.1; O2SAT 93–99
[2023-02-22 04:09] LABS: BASOPHILS % (AUTO) 0.2 % (0.0-2.0); EOSINOPHILS # (AUTO) 0.3 K/uL (0.0-0.4); EOSINOPHILS % (AUTO) 3.1 % (0.0-4.0); HEMATOCRIT 31.6 % (36-48); HEMOGLOBIN 10.6 g/dL (12.0-16.0); LYMPHOCYTES # (AUTO) 2.3 K/uL (1.0-5.5); LYMPHOCYTES % (AUTO) 27.1 % (20.5-51.5); MEAN CORPUSCULAR HEMOGLOBIN 27 pg (27-31); MEAN CORPUSCULAR HGB CONC 34 % (32-36); MEAN CORPUSCULAR VOLUME 81 fL (79.0-98.0); MONOCYTES # (AUTO) 0.7 K/uL (0.0-1.0); MONOCYTES % (AUTO) 7.6 % (1.7-9.3); NEUTROPHILS # (AUTO) 5.3 K/uL (1.8-7.7); PLATELET COUNT (AUTO) 322 K/uL (130-430); RED CELL DISTRIBUTION WIDTH 16.2 % (9.0-15.0); WHITE BLOOD COUNT (AUTO) 8.6 K/uL (4.8-10.8)
[2023-02-22 04:27] LABS: CALCIUM 8.5 mg/dL (8.4-11.0); CREATININE 0.44 mg/dL (0.55-1.30); POTASSIUM 4.3 mmol/L (3.5-5.1)
[2023-02-22] MEDS: PIPERACILLIN/TAZO 3.375/DEX-IS 50 ML IV SCH ×3 (05:42→18:21)
[2023-02-22] MEDS: IPRATROPIUM/ALBUTEROL SULFATE 3 ML AMPUL.NEB (DUONEB) INH SCH ×4 (07:12→19:27)
[2023-02-22] MEDS: oxyBUTYnin chloride 5 MG TABLET PO SCH ×3 (11:09→22:10)
[2023-02-22] MEDS: APIXABAN 2.5 MG TABLET PO SCH ×2 (11:11→22:12)
[2023-02-22] MEDS: GABAPENTIN 100 MG CAPSULE PO SCH ×4 (11:11→22:10)
[2023-02-22] MEDS: MILK OF MAGNESIA 30 ML UDC PO SCH ×2 (11:11→22:10)
[2023-02-22] MEDS: POLYETHYLENE GLYCOL 3350, 17 GM/ POWD.PACK PO SCH (11:11)
[2023-02-22] MEDS: AZITHROMYCIN 500 MG in NS 250 ML IV SCH (11:16)
[2023-02-22] MEDS ORDERED: ERTA1VIA3 INJ (13:45)
[2023-02-22] MEDS: BACLOFEN 10 MG TABLET PO SCH (22:10)
[2023-02-23 00:07] VITALS: BP_SYST 105; PULSE 99; RESP 18; TEMP 99.1; O2SAT 94
[2023-02-23] MEDS: PIPERACILLIN/TAZO 3.375/DEX-IS 50 ML IV SCH ×3 (00:52→12:52)
[2023-02-23 07:33] VITALS: O2SAT 97
[2023-02-23] MEDS: IPRATROPIUM/ALBUTEROL SULFATE 3 ML AMPUL.NEB (DUONEB) INH SCH ×2 (07:33→11:22)
[2023-02-23] MEDS: MILK OF MAGNESIA 30 ML UDC PO SCH (09:44)
[2023-02-23] MEDS: oxyBUTYnin chloride 5 MG TABLET PO SCH (09:44)
[2023-02-23] MEDS: GABAPENTIN 100 MG CAPSULE PO SCH ×2 (09:44→12:51)
[2023-02-23] MEDS: AZITHROMYCIN 500 MG in NS 250 ML IV SCH (09:45)
[2023-02-23] MEDS: APIXABAN 2.5 MG TABLET PO SCH (10:02)
[2023-02-23] MEDS: POLYETHYLENE GLYCOL 3350, 17 GM/ POWD.PACK PO SCH (10:03)
[2023-02-23 10:05] VITALS: BP_SYST 112; PULSE 77; RESP 18; TEMP 98.9; O2SAT 96
[2023-02-23 11:22] VITALS: O2SAT 98
[2023-02-23 12:37] VITALS: BP_SYST 108; PULSE 96; RESP 17; TEMP 97.9; O2SAT 97
[2023-02-23 14:11] VITALS: BP_SYST 118; PULSE 76; RESP 20; TEMP 98; O2SAT 96
[2023-02-27] MEDS ORDERED: ERGOCALCIFEROL 8000 UNITS/ML ORAL SOLUTION, 60 ML BOTTLE PO SCH (09:00)
== END 2023-02-23 15:10 | DRG 698 ==
LOC: SED 08:36 → SMU 14:15
PROVIDERS: ADMIT Internal Medicine; ATTEND Internal Medicine
DX: T83.518A Infection and inflammatory reaction due to other urinary catheter, initial encounter (principal); J18.9 Pneumonia, unspecified organism; E44.0 Moderate protein-calorie malnutrition; G82.20 Paraplegia, unspecified; N39.0 Urinary tract infection, site not specified; Z16.24 Resistance to multiple antibiotics; N31.9 Neuromuscular dysfunction of bladder, unspecified; Z68.22 Body mass index [BMI] 22.0-22.9, adult; Z20.822 Contact with and (suspected) exposure to COVID-19; Q05.9 Spina bifida, unspecified; Z79.01 Long term (current) use of anticoagulants; Y95 Nosocomial condition; B96.4 Proteus (mirabilis) (morganii) as the cause of diseases classified elsewhere
CPT/HCPCS: 36415; 71045; 80048; 80053; 81000; 81001; 81015; 83605; 83690; 83735; 85025; 87040; 87081; 87086; 92610-GN; 94640; 94760; 96365; 96367; 97110-GP; 97112-GP; 97530-GP; 99285; J0456; J0696; J2543; J7050

== ENCOUNTER 2023-06-14 14:38 | Emergency (ER) | payer OTHER, BC ==
[~2023-06-14] VITALS: Ht 152.4 cm; Wt 61.2 kg
[~2023-06-14 14:38] MED LIST changes: +ACET325T39 PO; +ASCO500C18 PO; +BENZ100C92 PO; -CHOL500037 PO; +CHOL500052 PO; +CICL6.6S19 TP; +CRAN450C PO; -CYCL10TA24 PO; +CYCL10TA25 PO; +DOCU-144 PO; +IBUP-1505 PO; +METH1TAB PO; -MOM PO; +MULT-1145 PO; -NITR100C PO; -NITROFURANTOIN PO; +NYST15PO2 TP; -POLY17PO4 PO; +POLY17PO44 PO; -ROPI0.5T PO; +ROPI1TAB46 PO; -SOLI10TA2 PO; +SOLI10TA7 PO; +TEMA7.5C2 PO; +TIZA4CAP6 PO; -TIZA6CAP PO; +ZINC220T4 PO; -[UNRECOGNIZED DRUG - CODE] PO
[2023-06-14 14:43] VITALS: BP_SYST 110; PULSE 86; RESP 18; TEMP 98.3; O2SAT 98
[2023-06-14 16:11] LABS: BASOPHILS # (AUTO) 0.1 K/uL (0.0-0.2); BASOPHILS % (AUTO) 0.9 % (0.0-2.0); EOSINOPHILS # (AUTO) 0.4 K/uL (0.0-0.4); EOSINOPHILS % (AUTO) 4.1 % (0.0-4.0); HEMATOCRIT 35.5 % (36-48); HEMOGLOBIN 11.8 g/dL (12.0-16.0); LYMPHOCYTES # (AUTO) 2.5 K/uL (1.0-5.5); LYMPHOCYTES % (AUTO) 28.3 % (20.5-51.5); MEAN CORPUSCULAR HEMOGLOBIN 27 pg (27-31); MEAN CORPUSCULAR HGB CONC 33 % (32-36); MEAN CORPUSCULAR VOLUME 82 fL (79.0-98.0); MONOCYTES # (AUTO) 0.6 K/uL (0.0-1.0); NEUTROPHILS # (AUTO) 5.3 K/uL (1.8-7.7); NEUTROPHILS % (AUTO) 59.7 % (40.0-70.0); PLATELET COUNT (AUTO) 361 K/uL (130-430); RED BLOOD CELL COUNT(AUTO) 4.35 MIL/uL (4.2-6.2); RED CELL DISTRIBUTION WIDTH 18.1 % (9.0-15.0); WHITE BLOOD COUNT (AUTO) 8.8 K/uL (4.8-10.8)
[2023-06-14 16:18] LABS: CALCIUM 8.4 mg/dL (8.4-11.0); CREATININE 0.4 mg/dL (0.55-1.30); POTASSIUM 3.9 mmol/L (3.5-5.1)
[2023-06-14 22:17] VITALS: BP_SYST 120; PULSE 89; RESP 16; TEMP 97.8; O2SAT 98
== END 2023-06-14 22:17 | disposition home or self-care (01) ==
LOC: SED 14:38
DX: R60.0 Localized edema (principal); Z79.899 Other long term (current) drug therapy
CPT/HCPCS: 36415; 71045; 73590; 80048; 83880; 85025; 93970; 99284